=== PATIENT | female | born 1970 | race African-American/Black ===

== ENCOUNTER 2017-08-23 13:41 | Observation (INO) | payer BC, OTHER ==
[~2017-08-23] VITALS: Ht 160 cm; Wt 176.0 kg
[2017-08-23] MEDS ORDERED: ONDANSETRON HCL INJ 2 MG/ML VIAL IV STA (14:08)
[2017-08-23] MEDS ORDERED: MORPHINE SULFATE 2 MG/ML SYR IV STA (14:08)
[2017-08-23 14:10] LABS: BASOPHILS # (AUTO) 0.1 (0.0-0.1); BASOPHILS % 0.6 % (0.0-1.0); EOSINOPHILS # (AUTO) 0.1 (0.0-0.4); EOSINOPHILS % 0.9 % (0.0-6.0); HEMATOCRIT 35.8 % (34.2-44.1); LYMPHOCYTES # (AUTO) 4.6 (1.0-3.2); MEAN CORPUSCULAR HEMOGLOBIN 23.7 pg (28-32); MEAN CORPUSCULAR HGB CONC 30.7 g/dL (31-35); MEAN CORPUSCULAR VOLUME 77.2 fL (81-99); MONOCYTES # (AUTO) 0.6 (0.2-0.8); MONOCYTES % 5.3 % (4.4-11.3); NEUTROPHILS # (AUTO) 5.4 (2.1-6.9); NEUTROPHILS % 49.9 % (38.7-80.0); PLATELET COUNT 547 x10e3/uL (140-360); RED BLOOD COUNT 4.64 x10e6/uL (3.6-5.1); RED CELL DISTRIBUTION WIDTH 16.7 % (11.7-14.4)
[2017-08-23] MEDS ORDERED: ASPIRIN 81 MG CHEW TAB PO ONE (14:15)
[2017-08-23] MEDS ORDERED: SODIUM CHLORIDE 0.9% 1000ML 1,000 ML IV SCH (14:15)
[2017-08-23] MEDS ORDERED: NITROGLYCERIN 0.4 MG SUBL SL ONE (14:15)
[2017-08-23 14:22] LABS: INR 1.07; PARTIAL THROMBOPLASTIN TIME 20.2 seconds (23.8-35.5); PROTHROMBIN TIME 13.1 seconds (11.9-14.5)
[2017-08-23 14:30] LABS: ALANINE AMINOTRANSFERASE 15 IU/L (0-55); ALBUMIN 4.3 g/dL (3.5-5.0); ALKALINE PHOSPHATASE 66 IU/L (40-150); BLOOD UREA NITROGEN 13 mg/dL (7-26); BUN/CREATININE RATIO 11 (6-25); CALCIUM 10.1 mg/dL (8.4-10.2); CARBON DIOXIDE 24 mmol/L (22-29); CHLORIDE 100 mmol/L (98-107); CREATINE KINASE 311 IU/L (29-168); CREATININE, SERUM 1.18 mg/dL (0.57-1.11); EST GLOMERULAR FILTRATION RATE 60 ML/MIN (60-); GLUCOSE 100 mg/dL (74-118); MAGNESIUM 1.9 MG/DL (1.3-2.1); SODIUM 135 mmol/L (136-145)
[2017-08-23] MEDS ORDERED: NITROGLYCERIN 2% OINT 1 GM PKT TOP ONE (14:30)
[2017-08-23] MEDS ORDERED: ENOXAPARIN SODIUM INJ 100 MG/ML SYR SC STA (14:39)
[2017-08-23] MEDS ORDERED: SODIUM CHLORIDE FLUSH 10 ML SYR INJ PRN (15:00)
[2017-08-23] MEDS ORDERED: NITROGLYCERIN 0.4 MG SUBL SL PRN (15:00)
[2017-08-23] MEDS ORDERED: ONDANSETRON HCL INJ 2 MG/ML VIAL IV PRN (15:00)
--- NOTE | 2017-08-23 15:10 | Diagnostic Imaging Report ---
PROCEDURE: A single AP view of the chest. COMPARISON: None. INDICATIONS: CHEST PAIN FINDINGS: Lines/tubes: None. Lungs: Limited by body habitus. The lungs are well inflated and clear. There is no evidence of pneumonia or pulmonary edema. Pleura: There is no pleural effusion or pneumothorax. Heart and mediastinum: The heart and the mediastinum are unremarkable. Bones: No acute bony abnormality. IMPRESSION: 1. No acute cardiopulmonary disease. Dictated by: Monico Dorantes M.D. on 08/23/2017 at 15:14 Electronically approved by: Monico Dorantes M.D. on 08/23/2017 at 15:14
[2017-08-23 16:05] LABS: CHOL/HDL RATIO 5.1 (3.0-3.6)
[2017-08-23 16:08] VITALS: BP 147/94
[2017-08-23 16:25] LABS: THYROID STIMULATING HORMONE 2.439 uIU/mL (0.350-4.940)
[2017-08-23] MEDS ORDERED: ENOXAPARIN SOD INJ 40 MG/0.4 ML SYR SC SCH (17:00)
[2017-08-23] MEDS: FAMOTIDINE 20 MG/2 ML VIAL IV SCH (17:00)
[2017-08-23] MEDS: NITROGLYCERIN 2% OINT 1 GM PKT TOP SCH (17:13)
[2017-08-23 19:08] LABS: CREATINE KINASE 426 IU/L (29-168)
[2017-08-23 19:30] VITALS: BP 135/85
[2017-08-23 20:39] VITALS: BP 185/96
[2017-08-23 20:40] VITALS: BP 135/85
[2017-08-23] MEDS: METOPROLOL TARTRATE 25 MG TAB PO SCH (21:43)
[2017-08-23] MEDS ORDERED: ACETAMINOPHEN 325 MG TAB PO PRN (21:45)
[2017-08-23 23:28] VITALS: BP 135/85
[2017-08-23 23:55] VITALS: BP 135/85
[2017-08-24 00:42] VITALS: BP 135/85
[2017-08-24 00:43] VITALS: BP 127/72
[2017-08-24 04:14] VITALS: BP 108/53
[2017-08-24] MEDS: NITROGLYCERIN 2% OINT 1 GM PKT TOP SCH ×2 (05:30)
[2017-08-24 06:41] LABS: BASOPHILS # (AUTO) 0.1 (0.0-0.1); BASOPHILS % 0.8 % (0.0-1.0); EOSINOPHILS # (AUTO) 0.1 (0.0-0.4); EOSINOPHILS % 1.8 % (0.0-6.0); HEMATOCRIT 35.9 % (34.2-44.1); HEMOGLOBIN 10.8 g/dL (12.0-16.0); LYMPHOCYTES % 55.3 % (18.0-39.1); MEAN CORPUSCULAR HEMOGLOBIN 23.8 pg (28-32); MEAN CORPUSCULAR HGB CONC 30.1 g/dL (31-35); MEAN CORPUSCULAR VOLUME 79.1 fL (81-99); MONOCYTES # (AUTO) 0.5 (0.2-0.8); MONOCYTES % 6.5 % (4.4-11.3); NEUTROPHILS # (AUTO) 2.5 (2.1-6.9); NEUTROPHILS % 35.2 % (38.7-80.0); PLATELET COUNT 459 x10e3/uL (140-360); RED BLOOD COUNT 4.54 x10e6/uL (3.6-5.1); RED CELL DISTRIBUTION WIDTH 16.6 % (11.7-14.4)
[2017-08-24 07:01] LABS: ALANINE AMINOTRANSFERASE 15 IU/L (0-55); ALBUMIN 3.9 g/dL (3.5-5.0); ALKALINE PHOSPHATASE 64 IU/L (40-150); ANION GAP 13.3 mmol/L (8-16); BLOOD UREA NITROGEN 11 mg/dL (7-26); BUN/CREATININE RATIO 12 (6-25); CALCIUM 9.7 mg/dL (8.4-10.2); CARBON DIOXIDE 27 mmol/L (22-29); CHLORIDE 99 mmol/L (98-107); CHOL/HDL RATIO 5.3 (3.0-3.6); CHOLESTEROL 203 MD/DL (0-199); CREATININE, SERUM 0.93 mg/dL (0.57-1.11); EST GLOMERULAR FILTRATION RATE > 60 ML/MIN (60-); GLUCOSE 97 mg/dL (74-118); HDL CHOLESTEROL 38 MG/DL (40-60); LDL CHOLESTEROL 141 MG/DL (60-130); POTASSIUM 4.3 mmol/L (3.5-5.1); SODIUM 135 mmol/L (136-145); TRIGLYCERIDES 118 MG/DL (0-149)
[2017-08-24 08:06] VITALS: BP 130/75
[2017-08-24 08:12] LABS: CREATINE KINASE 605 IU/L (29-168)
[2017-08-24] MEDS: FAMOTIDINE 20 MG/2 ML VIAL IV SCH (08:46)
[2017-08-24] MEDS: METOPROLOL TARTRATE 25 MG TAB PO SCH (08:46)
[2017-08-24] MEDS ORDERED: ASPIRIN 325 MG TAB PO SCH (09:00)
[2017-08-24] MEDS ORDERED: ASPIRIN 325 MG TAB EC PO SCH (09:00)
[2017-08-24] MEDS ORDERED: ACETAMINOPHEN325 M1 PO (11:32)
[2017-08-24] MEDS ORDERED: LOPRESSOR25 MG PO (11:32)
[2017-08-24] MEDS ORDERED: ASPIRIN325 MG PO (11:32)
[2017-08-24] MEDS ORDERED: PEPCID20 MG PO (11:32)
[2017-08-24] MEDS ORDERED: PRAVASTATIN SOD20 MG PO (11:34)
[2017-08-24 12:05] VITALS: BP 113/55
--- NOTE | 2017-08-26 16:01 | History and Physical ---
PRIMARY CARE PHYSICIAN: Dr. Ford. CHIEF COMPLAINT: Chest pain. HISTORY OF PRESENT ILLNESS: A 47-year-old woman with a history of diabetes mellitus and hypertension, now developing chest discomfort described as tightness in the left side of the chest, described as squeezing as well. Took an aspirin 325 mg with no relief. Given nitroglycerin in the emergency room with improvement. She had diffuse muscle spasms as well over her entire body. She admits to starting a workup regimen by using a stationary bike for the past week and was recently exercising yesterday. Denies any other symptoms. Denies any shortness of breath, dizziness or blurred vision. She had a stress test previously at [facility] which was negative. PAST MEDICAL HISTORY: Hypertension, diabetes mellitus, morbid obesity. PAST SURGICAL HISTORY: Gastric sleeve, x2. ALLERGIES: PER THE ELECTRONIC MEDICAL RECORDS. FAMILY HISTORY/SOCIAL HISTORY: Patient is . She has 3 children. No alcohol, illicit drugs or cigarettes. 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 MEDICATIONS: Per the electronic medical records. Medications reviewed. REVIEW OF SYSTEMS: Denies any dizziness, fever, chills, sweats, nausea, vomiting, diarrhea. VITAL SIGNS: Have been reviewed. PHYSICAL EXAMINATION GENERAL APPEARANCE: A tired-appearing woman resting in bed. HEENT: Anicteric. Pupils responsive to light. No oral lesions. CARDIOVASCULAR: Normal S1/S2. LUNGS: Moderate breath sounds. ABDOMEN: Soft, nontender, nondistended. EXTREMITIES: No edema or calf tenderness. NEUROLOGICALLY: Alert and oriented x3. Moving all extremities. SKIN: Dry. PSYCHIATRIC: Normal mood. LABS: Reviewed. ASSESSMENT: A 47-year-old woman. 1. Chest pain. 2. Acute kidney injury. 3. Supermorbid obesity. 4. Hypertension. 5. History of diabetes mellitus. PLAN 1. Trend cardiac enzymes. 2. Obtain lipid panel and hemoglobin A1c. 3. Obtain TSH. 4. Use Lovenox and Pepcid for prophylaxis. 5. Cardiology consultation in a patient with a history of diabetes, morbid obesity and chest discomfort. 6. Follow up echocardiogram. 7. Chest x-ray and EKG have been reviewed. Job#: [id number] EV
== END 2017-08-24 12:55 | disposition home or self-care (01) ==
LOC: ER 13:41 → ERHOLD 15:06 → IMCU 16:01
PROVIDERS: ADMIT Internal Medicine; ATTEND Internal Medicine
DX: R07.89 Other chest pain (principal); N17.9 Acute kidney failure, unspecified; I10 Essential (primary) hypertension; E11.9 Type 2 diabetes mellitus without complications; Z68.44 Body mass index [BMI] 60.0-69.9, adult; E66.01 Morbid (severe) obesity due to excess calories; I07.1 Rheumatic tricuspid insufficiency; Z98.84 Bariatric surgery status; Z79.82 Long term (current) use of aspirin
CPT/HCPCS: 36415 ×2; 71045; 80053 ×2; 80061 ×2; 82550 ×2; 82553 ×2; 83036; 83735; 83880; 84443; 84484 ×2; 84702; 85025 ×2; 85379; 85610; 85730; 93005; 93306; 99284; G0378 ×2; J1650; J2270; J2405

== ENCOUNTER 2018-03-11 11:28 | Emergency (ER) | payer BC, OTHER ==
[~2018-03-11] VITALS: Ht 162.6 cm; Wt 163.3 kg
[~2018-03-11 11:28] MED LIST: ACETAMINOPHEN325 M1 PO; ASPIRIN325 MG PO; LOPRESSOR25 MG PO; PEPCID20 MG PO; PRAVASTATIN SOD20 MG PO
--- OUTSIDE RECORDS SUMMARY | 2018-03-11 11:31 | XMS REPORT ---
Author Author [facility] Address Unknown Phone Unavailable Care Team Providers Care Elevator Adjuster Name Role Phone ROSIE CONLEY Unavailable Unavailable Problems This patient has no known problems. Allergies, Adverse Reactions, Alerts This patient has no known allergies or adverse reactions. Medications This patient has no known medications. Results Test Description Test Time Test Comments Text Results Atomic Results Result Comments CHEST SINGLE (PORTABLE) 2017-08-23 15:14:00 [place] [id number] Patient Name: Rubia RUSS MR #: [id number] : 1970 Age/Sex: 47/F Req #: [id number] Adm Physician: ROSIE CONLEY MD Ordered by: RAMÓN GOOD MD Report #: [id number] Location: [facility] Room/Bed: [place] [address] Procedure: [id number] DX/CHEST SINGLE (PORTABLE) Exam Date: Exam Time: REPORT STATUS: Signed PROCEDURE: A single AP view of the chest. COMPARISON: None. INDICATIONS: CHEST PAIN FINDINGS: Lines/tubes: None. Lungs: Limited by body habitus. The lungs are well inflated and clear. There is no evidence of pneumonia or pulmonary edema. Pleura: There is no pleural effusion or pneumothorax. Heart and mediastinum: The heart and the mediastinum are unremarkable. Bones: No acute bony abnormality. IMPRESSION: 1. No acute cardiopulmonary disease. Dictated by: Monico Angelo M.D. on 08/23/2017 at 15:14 Electronically approved by: Monico Angelo M.D. on 08/23/2017 at 15:14 Dictated By: MONICO ANGELO MD 1514 Transcribed By: NOVA on 08/23/17 [id number] COPY TO: RAMÓN GOOD MD
[2018-03-11 12:26] VITALS: BP 146/98
[2018-03-11] MEDS ORDERED: ONDANSETRON HCL 4 MG ORAL DISINTEGRATING TAB PO ONE (12:30)
== END 2018-03-11 12:35 | disposition home or self-care (01) ==
LOC: FSED 11:28
DX: R53.1 Weakness (principal); K52.9 Noninfective gastroenteritis and colitis, unspecified; K05.00 Acute gingivitis, plaque induced; M79.7 Fibromyalgia
CPT/HCPCS: 99282

== ENCOUNTER 2018-03-13 17:00 | Emergency (ER) | payer BC ==
[~2018-03-13] VITALS: Ht 162.6 cm; Wt 159.7 kg
[2018-03-13] MEDS ORDERED: SODIUM CHLORIDE 0.9% 1000ML 1,000 ML IV STA (17:16)
[2018-03-13 17:26] LABS: BASOPHILS # (AUTO) 0.1 (0.0-0.1); BASOPHILS % 0.6 % (0.0-1.0); EOSINOPHILS # (AUTO) 0.2 (0.0-0.4); EOSINOPHILS % 1.9 % (0.0-6.0); HEMATOCRIT 33.1 % (34.2-44.1); HEMOGLOBIN 9.5 g/dL (12.0-16.0); LYMPHOCYTES # (AUTO) 4.1 (1.0-3.2); LYMPHOCYTES % 51.2 % (18.0-39.1); MEAN CORPUSCULAR HEMOGLOBIN 22.2 pg (28-32); MEAN CORPUSCULAR HGB CONC 28.7 g/dL (31-35); MEAN CORPUSCULAR VOLUME 77.3 fL (81-99); MONOCYTES # (AUTO) 0.6 (0.2-0.8); MONOCYTES % 7.2 % (4.4-11.3); NEUTROPHILS # (AUTO) 3.1 (2.1-6.9); PLATELET COUNT 437 x10e3/uL (140-360); RED BLOOD COUNT 4.28 x10e6/uL (3.6-5.1); RED CELL DISTRIBUTION WIDTH 16.7 % (11.7-14.4)
[2018-03-13] MEDS ORDERED: PROMETHAZINE HCL (IM) 25 MG/ML VIAL ONE (17:30)
[2018-03-13] MEDS ORDERED: DIPHENHYDRAMINE HCL INJ 50 MG/ML VIAL IV ONE (17:30)
[2018-03-13] MEDS ORDERED: PROMETHAZINE HCL (IM) 25 MG/ML VIAL IM ONE (18:00)
[2018-03-13] MEDS ORDERED: KETOROLAC TROMETHAMINE 30 MG/ML VIAL IV ONE (18:00)
[2018-03-13] MEDS ORDERED: METOCLOPRAMIDE HCL 10 MG/2ML VIAL IV ONE (18:00)
--- NOTE | 2018-03-13 18:03 | NUR ---
PT STATES HEADACHE TO FRONTAL LOBE RADIATING TO BACK WITH NAUSEA X 4 DAYS POST VISIT TO DENTIST OFFICE PT C/O PHOTOSENSITIVITY DENIES VOMITING, DENIES TRAUMA, PT STATES HISTORY OF MIGRAINES BUT HAS NOT HAD ONE IN YEARS DENIES NECK/BACK PAIN
[2018-03-13 18:05] LABS: ALANINE AMINOTRANSFERASE 16 IU/L (0-55); ALBUMIN 3.7 g/dL (3.5-5.0); ALKALINE PHOSPHATASE 57 IU/L (40-150); ANION GAP 13.7 mmol/L (8-16); BLOOD UREA NITROGEN 12 mg/dL (7-26); BUN/CREATININE RATIO 14 (6-25); CALCIUM 8.6 mg/dL (8.4-10.2); CARBON DIOXIDE 25 mmol/L (22-29); CHLORIDE 104 mmol/L (98-107); CREATININE, SERUM 0.85 mg/dL (0.57-1.11); EST GLOMERULAR FILTRATION RATE > 60 ML/MIN (60-); GLUCOSE 93 mg/dL (74-118); POTASSIUM 3.7 mmol/L (3.5-5.1); SODIUM 139 mmol/L (136-145)
[2018-03-13] MEDS ORDERED: MECLIZINE HCL 12.5 MG TAB PO ONE (18:30)
[2018-03-13 18:41] LABS: EOSINOPHILS % (MANUAL) 7 % (0-7); LYMPHOCYTES % (MANUAL) 51 % (19-48); MONOCYTES % (MANUAL) 7 % (3.4-9.0); NEUTROPHILS % (MANUAL) 32 % (40-74)
[2018-03-13 18:42] LABS: ANISOCYTOSIS S; PLATELET ESTIMATE SLIGHTLY INCREASED; PLATELET MORPHOLOGY COMMENT NORMAL; POIKILOCYTOSIS S; RBC MORPHOLOGY COMMENT NORMAL
--- NOTE | 2018-03-13 19:09 | NUR ---
Report to RADHA Dunbar.
--- NOTE | 2018-03-13 19:37 | Diagnostic Imaging Report ---
Exam: Head CT without contrast History: Headache, dizziness Comparison studies: None Technique: Axial images were obtained from the skull base to the vertex. Coronal and sagittal images reconstructed from the axial data. Dose modulation, iterative reconstruction, and/or weight based adjustment of the mA/kV was utilized to reduce the radiation dose to as low as reasonably achievable. Radiation dose: Total DLP: 921 mGy*cm. Estimated effective dose: DLP x 0.015 Intravenous contrast: None Findings: Scalp: No abnormalities. Bones: No fractures, blastic or lytic lesions. Brain sulci: Appropriate for age. Ventricles: Normal in size and configuration. No hydrocephalus. Extra-axial spaces: No masses, no fluid collection. Parenchyma: No abnormal densities. No masses, acute hemorrhage, acute or chronic vascular insults. Sellar/suprasellar region: No abnormalities. Craniocervical junction: Patent foramen magnum. No Chiari one malformation. Included paranasal sinuses: Clear. Weaver cavities and included mastoid air cells: Clear. IMPRESSION: No abnormalities. Signed by: Dr. Richie Solis M.D. on 03/13/2018 7:34 PM
--- NOTE | 2018-03-13 20:01 | NUR ---
PT RESTING COMFORTABLY IN BED AT THIS TIME, DENIES PAIN OR NAUSEA. UPDATED WITH PLAN OF CARE, VERBALIZED UNDERSTANDING. CALL LIGHT WITHIN REACH, ENCOURAGED TO CALL FOR ASSISTANCE. WILL CONTINUE TO MONITOR.
[2018-03-13 22:17] LABS: BILIRUBIN,URINE NEGATIVE (NEGATIVE); CLARITY,URINE CLOUDY (CLEAR); COLOR,URINE YELLOW (YELLOW); KETONES,URINE NEGATIVE (NEGATIVE); LEUKOCYTE ESTERASE ,URINE NEGATIVE (NEGATIVE); NITRITE,URINE NEGATIVE (NEGATIVE); PREGNANCY TEST, URINE NEGATIVE (NEGATIVE); PROTEIN,URINE DIPSTICK TRACE (NEGATIVE); URINE UROBILINOGEN 0.2 mg/dL (0.2 - 1)
[2018-03-13 22:26] LABS: BACTERIA,URINE MANY /HPF; EPITHELIAL CELLS,URINE MANY /LPF
[2018-03-13 22:57] VITALS: BP 143/86
== END 2018-03-13 23:00 | disposition home or self-care (01) ==
LOC: ER 17:00
DX: G44.211 Episodic tension-type headache, intractable (principal); R11.2 Nausea with vomiting, unspecified; H81.399 Other peripheral vertigo, unspecified ear
CPT/HCPCS: 36415; 70450; 80053; 81001; 81025; 85025; 87086; 93005; 96374; 96375; 99284; J1200; J1885; J2550; J2765; J7030

== ENCOUNTER → 2018-08-15 | Outpatient (CLI) | payer BC ==
--- NOTE | 2018-08-15 14:03 | Diagnostic Imaging Report ---
EXAM: Transabdominal and Transvaginal Pelvic Ultrasound INDICATION: Fibroids. ^[id number] ^1134 ^HX FIBROIDS/HEAVY CYCLES COMPARISON: None TECHNIQUE: Grayscale transverse and sagittal transabdominal and transvaginal images were obtained of the pelvis. Transvaginal imaging was medically necessary to better evaluate the endometrium and the adnexa. CLINICAL HISTORY: 48 year old A0; last menstrual period: 07/17/2018. FINDINGS: Uterus Orientation: Normal Size: 10.9 x 5.7 x 7.7 cm, Normal Mass: None Cervix: 1.1 cm anechoic lesion likely due to a nabothian cyst. Endometrium: Thickness: 0.2 cm, Normal. Appearance: Homogeneous echotexture without focal thickening. Right ovary: Size: 3.5 x 1.2 x 2.6 cm Mass/Cyst: None Left ovary: Size: 2.9 x 2.2 x 2.6 cm Mass/Cyst: 2.9 x 2.2 x 1.1 cm simple appearing left ovarian cyst Adnexa: Normal Cul-de-sac: No free fluid IMPRESSION: 2.9 x 2.2 x 1.1 cm simple appearing left ovarian cyst. 1.1 cm anechoic cervical lesion likely due to a nabothian cyst. Signed by: Dr. Burak Elder M.D. on 08/15/2018 1:59 PM
== END ==
LOC: US 10:47
PROVIDERS: ATTEND Obstetrics & Gynecology
DX: N92.0 Excessive and frequent menstruation with regular cycle (principal); D25.9 Leiomyoma of uterus, unspecified
CPT/HCPCS: 76830; 76856; 77067

== ENCOUNTER 2019-09-17 06:06 | Emergency (ER) | payer BC ==
[~2019-09-17] VITALS: Ht 162.6 cm; Wt 159.7 kg
[2019-09-17] MEDS ORDERED: MORPHINE SULFATE 2 MG/ML SYR 1ML IV STA ×2 (06:11→07:11)
[2019-09-17] MEDS ORDERED: KETOROLAC TROMETHAMINE 30 MG/ML VIAL IV STA (06:11)
[2019-09-17] MEDS ORDERED: ONDANSETRON HCL INJ 2MG/ML 2ML 2 MG/ML VIAL IV STA (06:11)
[2019-09-17] MEDS ORDERED: SODIUM CHLORIDE 0.9% 1000ML 1,000 ML IV SCH (06:15)
[2019-09-17] MEDS ORDERED: MORPHINE SULFATE INJ 4 MG/ML INJ 1ML ONE ×2 (06:53→07:28)
--- NOTE | 2019-09-17 07:05 | Emergency Department Note ---
History of Present Illnes History of Present Illness Chief Complaint: Abdominal Complaints History of Present Illness This is a 49 year old female . Arrival Mode: Car Order Puller Required: No Onset (how long ago): hour(s) (1-2) Location: LLQ Quality: Pain Radiation: Reports back, Reports distal Severity: moderate Onset quality: sudden Duration (how long): hour(s) Timing of current episode: constant Progression: waxing and waning Chronicity: new Context: Denies recent illness, Denies recent surgery, Denies recent immobi lization, Denies recent travel, Denies trauma/injury, Denies new medications, Denies hx of DVT/PE, Denies non-compliance w/ medications, Denies other Relieving factors: none Exacerbating factors: movement Associated symptoms: Denies denies other symptoms, Denies confusion, Denies chest pain, Denies cough, Denies diaphoresis, Denies fever/chills, Denies headaches, Denies loss of appetite, Denies malaise, Denies nausea/vomiting, Denies rash, Denies seizure, Denies shortness of breath, Denies syncope, Denies weakness, Denies other Treatments prior to arrival: none Risk factors: Pt has hx of gastic sleeve, C sections, ovarina cyst no hx of stones Past Medical/Family History Physician Review I have reviewed the patient's past medical and family history. Any updates have been documented here. Past Medical History Recent Fever: No Clinical Suspicion of Infectio: No New/Unexplained Change in Ment: No Past Medical History: Hypertension Other Medical History: FIBROMYALGIA PARAESTHESIA ANEMIA Past Surgical History: Tubal Ligation, , Bariatric Surgery Other Surgery: Gastric Sleeve Tubal Ligation Social History Smoking Cessation: Never Smoker Alcohol Use: None Any Illegal Drug Use: No Other Last Tetanus: unk Review of Systems Review of Systems Constitutional: Denies no symptoms, Denies as per HPI, Denies chills, Denies diaphoresis, Denies fever, Denies malaise, Denies weakness, Denies other Gastrointestinal: Reports abdominal pain; Denies diarrhea, Denies nausea Genitourinary: Denies dysuria, Denies frequency, Denies hematuria Review of other systems: All other systems negative Physical Exam Related Data Allergies: Coded Allergies: No Known Allergies (Unverified , 08/23/17) Vital signs reviewed: Yes Physical Exam CONSTITUTIONAL Constitutional: Present well-developed, Present morbidly obese HENT HENT: Present normocephalic EYES Eyes: Reports conjunctivae normal NECK Neck: Present supple PULMONARY Pulmonary: Present breath sounds normal CARDIOVASCULAR Cardiovascular: Present regular rhythm GASTROINTESTINAL Abdominal: Present soft, Present tender GENITOURINARY SKIN Skin: Present warm MUSCULOSKELETAL Musculoskeletal: Absent edema NEUROLOGICAL Neurological: Present alert PSYCHOLOGICAL Psychological: Present mood/affect normal Results Laboratory Laboratory UPT neg UA b;ppd raced, Nitrite pos CMP Normal CBC Normal Lab results reviewed: Yes Imaging Imaging results reviewed: Yes Impressions Procedure: [id number] CT/CT ABDOMEN/PELVIS WO Exam Date: 09/17/19 Exam Time: 825 REPORT STATUS: Signed EXAM: CT Abdomen and Pelvis WITHOUT contrast INDICATION: LLQ abd pain COMPARISON: Pelvic ultrasound dated 08/15/2018 TECHNIQUE: Abdomen and pelvis were scanned utilizing a multidetector helical scanner from the lung base to the pubic symphysis without administration of IV contrast. Absence of intravenous contrast decreases sensitivity for detection of focal lesions and vascular pathology. Coronal and sagittal reformations were obtained. Routine protocol was performed. IV CONTRAST: None ORAL CONTRAST: Water COMPLICATIONS: None RADIATION DOSE: Total DLP: 1340.54 mGy-cm Estimated effective dose: (DLP x 0.015 x size factor) mSv CTDIvol has been reviewed. It is below the limits set by the Radiation Protocol Committee (RPC). FINDINGS: LINES and TUBES: None. LOWER THORAX: Unremarkable HEPATOBILIARY: No focal hepatic lesions. No biliary ductal dilation. GALLBLADDER: No radio-opaque stones or sludge. No gallbladder wall thickening. SPLEEN: No splenomegaly.. PANCREAS: The unenhanced pancreas shows no focal masses. There is no ductal dilatation. ADRENALS: The adrenal glands are unremarkable. KIDNEYS/URETERS: No hydronephrosis. No cystic or solid mass lesions. No stones. GI TRACT: Status post gastric surgery. No abnormal distention, wall thickening, or evidence of bowel obstruction. PELVIC ORGANS/BLADDER: The bladder is unremarkable. LYMPH NODES: Slightly prominent mesenteric lymph nodes measuring up to 0.7 cm, nonspecific. VESSELS: Vessels are incompletely evaluated due to lack of IV contrast. However no definite aneurysm seen. PERITONEUM / RETROPERITONEUM: No free air or fluid. BONES: Unremarkable. SOFT TISSUES: Unremarkable. IMPRESSION: No nephroureterolithiasis. No cystolithiasis. Slightly prominent mesenteric lymph nodes are nonspecific could be reactive. Signed by: Kristofer Hunt MD on 09/17/2019 8:48 AM Assessment & Plan Medical Decision Making MDM stones, diverticulitis, ovarian cyst,ovarian torsion Reassessment Reassessment Pt still having pain CT neg, pain is low and goes to ant leg which makes me thinks this may be radicular in nature L1-L2 Assessment & Plan Final Impression: (1) Abdominal pain (2) UTI (urinary tract infection) (3) Hypertension (4) Radicular low back pain Depart Disposition: HOME, SELF-long term Meds Active Scripts Sulfamethoxazole/Trimethoprim (BACTRIM DS TABLET) 1 Each Tablet, 1 EACH PO BID for 7 Days, #14 Prov:WEI KRISHNAN MD 09/17/19 Naproxen (NAPROSYN) 500 Mg Tablet, 500 MG PO BID for pain for 7 Days, #14 TAB Prov:WEI KRISHNAN MD 09/17/19 Tramadol Hcl (ULTRAM) 50 Mg Tablet, 50 MG PO TID PRN for ABDOMINAL PAIN for 4 Days, #12 TAB Prov:WEI KRISHNAN MD 09/17/19 Pravastatin Sodium (PRAVASTATIN SODIUM) 20 Mg Tablet, 20 MG PO HS for 30 Days Prov:ROSIE CONLEY MD 08/24/17 Famotidine (PEPCID) 20 Mg Tablet, 20 MG PO BID, #60 TAB Prov:ROSIE CONLEY MD 08/24/17 Metoprolol Tartrate (LOPRESSOR) 25 Mg Tab, 12.5 MG PO Q12HR for 30 Days, TAB Prov:ROSIE CONLEY MD 08/24/17 Aspirin (ASPIRIN) 325 Mg Tablet, 325 MG PO DAILY for 30 Days Prov:ROSIE CONLEY MD 08/24/17 Acetaminophen (ACETAMINOPHEN) 325 Mg Tablet, 650 MG PO Q6H PRN for PAIN AND TEMPERATURE for 30 Days Prov:ROSIE CONLEY MD 08/24/17 Medications in the ED Sodium Chloride 1,000 ml @ 0 mls/hr Q0M IV ; Start 09/17/19 at 06:15; Stop 10/17/19 at 06:14; Status UNV Ketorolac Tromethamine 15 mg ONCE STAT IV ; Start 09/17/19 at 06:11; Stop 7/26/20 at 06:12; Status UNV Ondansetron HCl 4 mg NOW STAT IV ; Start 09/17/19 at 06:11; Stop 09/17/19 at 06:12; Status UNV Morphine Sulfate 4 mg NOW STAT IV ; Start 09/17/19 at 06:11; Stop 09/17/19 at 06:12; Status UNV WEI KRISHNAN MD Sep 17, 2019 06:48
--- NOTE | 2019-09-17 08:52 | Diagnostic Imaging Report ---
EXAM: CT Abdomen and Pelvis WITHOUT contrast INDICATION: LLQ abd pain COMPARISON: Pelvic ultrasound dated 08/15/2018 TECHNIQUE: Abdomen and pelvis were scanned utilizing a multidetector helical scanner from the lung base to the pubic symphysis without administration of IV contrast. Absence of intravenous contrast decreases sensitivity for detection of focal lesions and vascular pathology. Coronal and sagittal reformations were obtained. Routine protocol was performed. IV CONTRAST: None ORAL CONTRAST: Water COMPLICATIONS: None RADIATION DOSE: Total DLP: 1340.54 mGy-cm Estimated effective dose: (DLP x 0.015 x size factor) mSv CTDIvol has been reviewed. It is below the limits set by the Radiation Protocol Committee (RPC). FINDINGS: LINES and TUBES: None. LOWER THORAX: Unremarkable HEPATOBILIARY: No focal hepatic lesions. No biliary ductal dilation. GALLBLADDER: No radio-opaque stones or sludge. No gallbladder wall thickening. SPLEEN: No splenomegaly.. PANCREAS: The unenhanced pancreas shows no focal masses. There is no ductal dilatation. ADRENALS: The adrenal glands are unremarkable. KIDNEYS/URETERS: No hydronephrosis. No cystic or solid mass lesions. No stones. GI TRACT: Status post gastric surgery. No abnormal distention, wall thickening, or evidence of bowel obstruction. PELVIC ORGANS/BLADDER: The bladder is unremarkable. LYMPH NODES: Slightly prominent mesenteric lymph nodes measuring up to 0.7 cm, nonspecific. VESSELS: Vessels are incompletely evaluated due to lack of IV contrast. However no definite aneurysm seen. PERITONEUM / RETROPERITONEUM: No free air or fluid. BONES: Unremarkable. SOFT TISSUES: Unremarkable. IMPRESSION: No nephroureterolithiasis. No cystolithiasis. Slightly prominent mesenteric lymph nodes are nonspecific could be reactive. Signed by: Kristofer Hunt MD on 09/17/2019 8:48 AM
[2019-09-17] MEDS ORDERED: NAPROSYN500 MG PO (09:11)
[2019-09-17] MEDS ORDERED: BACTRIM DS TAB1 EACH PO (09:11)
[2019-09-17] MEDS ORDERED: ULTRAM50 MG PO (09:11)
[2019-09-17 09:56] VITALS: BP 144/88
[2019-09-17] MEDS ORDERED: HYDROCODONE/APAP 5MG-325MG TAB ONE (09:56)
[2019-09-17] MEDS ORDERED: HYDROCODONE/APAP 5MG-325MG TAB PO ONE (10:00)
== END 2019-09-17 09:53 | disposition home or self-care (01) ==
LOC: FSED 06:15
DX: R10.32 Left lower quadrant pain (principal); N39.0 Urinary tract infection, site not specified; M54.5 Low back pain; I10 Essential (primary) hypertension; M79.7 Fibromyalgia; Z98.84 Bariatric surgery status
CPT/HCPCS: 74176; 80053; 81003; 81025; 85025; 99284; J1885; J2270; J2405; J7030

== ENCOUNTER 2020-02-01 00:42 | Emergency (ER) | payer BC, OTHER ==
[~2020-02-01] VITALS: Ht 162.6 cm; Wt 159.7 kg
[~2020-02-01 00:42] MED LIST changes: +BACTRIM DS TAB1 EACH PO; +NAPROSYN500 MG PO; +ULTRAM50 MG PO
[2020-02-01] MEDS ORDERED: SODIUM CHLORIDE 0.9% 1000ML 1,000 ML IV STA (00:48)
[2020-02-01 01:08] LABS: BASOPHILS # (AUTO) 0.1 (0.0-0.1); BASOPHILS % 0.7 % (0.0-1.0); EOSINOPHILS # (AUTO) 0.1 (0.0-0.4); EOSINOPHILS % 1.7 % (0.0-6.0); HEMATOCRIT 36.1 % (34.2-44.1); HEMOGLOBIN 10.7 g/dL (12.0-16.0); LYMPHOCYTES # (AUTO) 3.9 (1.0-3.2); LYMPHOCYTES % 47.4 % (18.0-39.1); MEAN CORPUSCULAR HEMOGLOBIN 23.6 pg (28-32); MEAN CORPUSCULAR HGB CONC 29.6 g/dL (31-35); MEAN CORPUSCULAR VOLUME 79.7 fL (81-99); MONOCYTES # (AUTO) 0.6 (0.2-0.8); MONOCYTES % 6.9 % (4.4-11.3); NEUTROPHILS # (AUTO) 3.5 (2.1-6.9); NEUTROPHILS % 43.1 % (38.7-80.0); PLATELET COUNT 476 x10e3/uL (140-360); RED BLOOD COUNT 4.53 x10e6/uL (3.6-5.1); RED CELL DISTRIBUTION WIDTH 15.6 % (11.7-14.4)
[2020-02-01 01:11] LABS: CLARITY,URINE SL CLOUDY (CLEAR); COLOR,URINE YELLOW (YELLOW); KETONES,URINE NEGATIVE (NEGATIVE); LEUKOCYTE ESTERASE ,URINE NEGATIVE (NEGATIVE); NITRITE,URINE NEGATIVE (NEGATIVE); PROTEIN,URINE DIPSTICK NEGATIVE (NEGATIVE); URINE UROBILINOGEN 0.2 mg/dL (0.2 - 1)
[2020-02-01 01:15] LABS: BACTERIA,URINE FEW /HPF; EPITHELIAL CELLS,URINE MANY /LPF; RBC,URINE 0-5 /HPF (0-5); WBC,URINE (MAN) 0-5 /HPF (0-5)
[2020-02-01 01:25] LABS: ALANINE AMINOTRANSFERASE 9 IU/L (0-55); ALBUMIN/GLOBULIN RATIO 1.1 (0.8-2.0); ALKALINE PHOSPHATASE 65 IU/L (40-150); ANION GAP 11.4 mmol/L (8-16); BLOOD UREA NITROGEN 15 mg/dL (7-26); BUN/CREATININE RATIO 18 (6-25); CALCIUM 9.5 mg/dL (8.4-10.2); CARBON DIOXIDE 27 mmol/L (22-29); CHLORIDE 105 mmol/L (98-107); CREATININE, SERUM 0.82 mg/dL (0.57-1.11); EST GLOMERULAR FILTRATION RATE > 60 ML/MIN (60-); GLUCOSE 101 mg/dL (74-118); POTASSIUM 4.4 mmol/L (3.5-5.1); SODIUM 139 mmol/L (136-145)
[2020-02-01] MEDS ORDERED: ONDANSETRON HCL INJ 2MG/ML 2ML 2 MG/ML VIAL IV STA (02:20)
[2020-02-01] MEDS ORDERED: ONDANSETRON HCL INJ 2MG/ML 2ML 2 MG/ML VIAL ONE (02:32)
[2020-02-01] MEDS ORDERED: IOPAMIDOL 370 MG/ML 200 ML INFUS..BTL INJ ONE (07:01)
[2020-02-01] MEDS ORDERED: SODIUM CHLORIDE 0.9% 50ML 50 ML ONE (07:02)
== END 2020-02-01 04:47 | disposition home or self-care (01) ==
LOC: ER 01:05
DX: R10.84 Generalized abdominal pain (principal); K57.32 Diverticulitis of large intestine without perforation or abscess without bleeding; R11.2 Nausea with vomiting, unspecified; R05 Cough; R19.7 Diarrhea, unspecified; D64.9 Anemia, unspecified; M79.7 Fibromyalgia; Z20.828 Contact with and (suspected) exposure to other viral communicable diseases
CPT/HCPCS: 36415; 71045; 74177; 80053; 81001; 83690; 85025; 99284; J2405; J7030; Q9967; U0002

== ENCOUNTER → 2020-02-19 | Outpatient (CLI) | payer OTHER ==
[~2020-02-19] MED LIST changes: +COVID-19 VACC, MRNA(MODERNA)/PF 100 MCG/0.5 ML VIAL IM ONE
== END ==
LOC: VACCPMC 10:49
DX: Z23 Encounter for immunization (principal); Z20.828 Contact with and (suspected) exposure to other viral communicable diseases

== ENCOUNTER → 2020-03-28 | Outpatient (CLI) | payer OTHER | END | DRG 951 | LOC: VACCPMC 07:37 | DX: Z23 Encounter for immunization (principal); Z20.822 Contact with and (suspected) exposure to COVID-19 | CPT/HCPCS: 0012A; 91301 ==

== ENCOUNTER → 2020-06-30 | Outpatient (CLI) | payer OTHER ==
[~2020-06-30] MED LIST changes: -COVID-19 VACC, MRNA(MODERNA)/PF 100 MCG/0.5 ML VIAL IM ONE
[2020-06-30 07:47] LABS: BASOPHILS % 0.5 % (0.0-1.0); EOSINOPHILS # (AUTO) 0.2 (0.0-0.4); EOSINOPHILS % 2.2 % (0.0-6.0); HEMATOCRIT 35.4 % (34.2-44.1); HEMOGLOBIN 10.5 g/dL (12.0-16.0); LYMPHOCYTES # (AUTO) 3.7 (1.0-3.2); LYMPHOCYTES % 49.8 % (18.0-39.1); MEAN CORPUSCULAR HEMOGLOBIN 22.7 pg (28-32); MEAN CORPUSCULAR HGB CONC 29.7 g/dL (31-35); MEAN CORPUSCULAR VOLUME 76.6 fL (81-99); MONOCYTES # (AUTO) 0.4 (0.2-0.8); MONOCYTES % 5.4 % (4.4-11.3); NEUTROPHILS # (AUTO) 3.1 (2.1-6.9); NEUTROPHILS % 41.7 % (38.7-80.0); PLATELET COUNT 443 x10e3/uL (140-360); RED BLOOD COUNT 4.62 x10e6/uL (3.6-5.1); RED CELL DISTRIBUTION WIDTH 17.1 % (11.7-14.4)
[2020-06-30 08:10] LABS: ALANINE AMINOTRANSFERASE 9 IU/L (0-55); ALBUMIN 3.6 g/dL (3.5-5.0); ALKALINE PHOSPHATASE 65 IU/L (40-150); BLOOD UREA NITROGEN 11 mg/dL (7-26); BUN/CREATININE RATIO 14 (6-25); CALCIUM 8.6 mg/dL (8.4-10.2); CARBON DIOXIDE 26 mmol/L (22-29); CHLORIDE 105 mmol/L (98-107); CHOL/HDL RATIO 4.2 (3.0-3.6); CHOLESTEROL 188 MD/DL (0-199); CREATININE, SERUM 0.81 mg/dL (0.57-1.11); EST GLOMERULAR FILTRATION RATE > 60 ML/MIN (60-); GLUCOSE 107 mg/dL (74-118); HDL CHOLESTEROL 45 MG/DL (40-60); LDL CHOLESTEROL 118 MG/DL (60-130); SODIUM 140 mmol/L (136-145); TRIGLYCERIDES 125 MG/DL (0-149)
[2020-06-30 08:30] LABS: THYROID STIMULATING HORMONE 1.345 uIU/mL (0.350-4.940)
[2020-06-30 08:41] LABS: PLATELET ESTIMATE SLIGHTLY INCREASED; PLATELET MORPHOLOGY COMMENT FEW LARGE; RBC MORPHOLOGY COMMENT NORMAL
[2020-06-30 08:42] LABS: HYPOCHROMASIA SLIGHT
== END | disposition home or self-care (01) ==
LOC: LAB 13:45
PROVIDERS: ATTEND Internal Medicine Cardiovascular Disease
DX: R07.2 Precordial pain (principal); R06.02 Shortness of breath; E78.00 Pure hypercholesterolemia, unspecified
CPT/HCPCS: 36415; 71046; 80053; 80061; 83036; 84443; 85025

== ENCOUNTER → 2020-12-19 | Outpatient (CLI) | payer OTHER ==
[~2020-12-19] MED LIST changes: +COVID-19 VACC, MRNA(MODERNA)/PF 100 MCG/0.5 ML VIAL IM ONE
== END ==
LOC: VACCPMC 09:00
DX: Z23 Encounter for immunization (principal); Z20.822 Contact with and (suspected) exposure to COVID-19

== ENCOUNTER 2021-02-08 07:35 | Emergency (ER) | payer OTHER ==
[~2021-02-08] VITALS: Ht 162.6 cm; Wt 159.7 kg
[~2021-02-08 07:35] MED LIST changes: -COVID-19 VACC, MRNA(MODERNA)/PF 100 MCG/0.5 ML VIAL IM ONE
[2021-02-08] MEDS ORDERED: SODIUM CHLORIDE 0.9% 1000ML 1,000 ML IV STA (07:40)
[2021-02-08] MEDS ORDERED: MECLIZINE HCL 12.5 MG TAB PO ONE (07:45)
[2021-02-08] MEDS ORDERED: ONDANSETRON ODT4 MG PO (08:23)
[2021-02-08] MEDS ORDERED: MECLIZINE HCL12.5 MG PO (08:23)
[2021-02-08 08:43] LABS: BASOPHILS % 0.6 % (0.0-1.0); EOSINOPHILS # (AUTO) 0.2 (0.0-0.4); EOSINOPHILS % 3.5 % (0.0-6.0); HEMATOCRIT 37.6 % (34.2-44.1); HEMOGLOBIN 11.2 g/dL (12.0-16.0); LYMPHOCYTES # (AUTO) 2.7 (1.0-3.2); MEAN CORPUSCULAR HEMOGLOBIN 23.9 pg (28-32); MEAN CORPUSCULAR HGB CONC 29.8 g/dL (31-35); MEAN CORPUSCULAR VOLUME 80.2 fL (81-99); MONOCYTES # (AUTO) 0.7 (0.2-0.8); NEUTROPHILS % 44.6 % (38.7-80.0); PLATELET COUNT 385 x10e3/uL (140-360); RED BLOOD COUNT 4.69 x10e6/uL (3.6-5.1); RED CELL DISTRIBUTION WIDTH 16.7 % (11.7-14.4)
[2021-02-08 09:13] LABS: ALBUMIN 3.5 g/dL (3.5-5.0); ANION GAP 14.9 mmol/L (8-16); CALCIUM 8.6 mg/dL (8.4-10.2); CREATININE, SERUM 0.77 mg/dL (0.57-1.11); POTASSIUM 3.9 mmol/L (3.5-5.1)
[2021-02-08] MEDS ORDERED: DIAZEPAM 5 MG TAB PO PRN (10:00)
== END 2021-02-08 11:25 | disposition home or self-care (01) ==
LOC: ER 07:42
DX: R42 Dizziness and giddiness (principal); R00.0 Tachycardia, unspecified
CPT/HCPCS: 36415; 70450; 80053; 84484; 85025; 93005; 99284; J7030; J8597

== ENCOUNTER → 2024-05-20 | Day surgery (SDC) | payer OTHER ==
[~2024-05-20] MED LIST changes: +DIPHENHYDRAMINE HCL INJ 50 MG/ML VIAL ONE; +FENTANYL CITRATE/PF 100MCG/2 ML INJ ONE; +MECLIZINE HCL12.5 MG PO; +MIDAZOLAM HCL 2 MG/2 ML VIAL ONE; +MOUNJARO15 MG/0.5; +ONDANSETRON ODT4 MG PO; +PROPOFOL IV EMULSION 10 MG/ML 20 ML VIAL ONE; +VENTOLIN HFA18 GM INH
[2024-05-20] MEDS: LACTATED RINGER'S 1,000 ML ONE (10:33)
[2024-05-20 13:40] VITALS: TEMP 97.8
[2024-05-20] MEDS: DIPHENHYDRAMINE HCL INJ 50 MG/ML VIAL IV ONE (13:52)
[2024-05-20 14:00] VITALS: BP 126/86; PULSE 86; RESP 18; O2SAT 95
== END | disposition home or self-care (01) ==
LOC: OR 10:15
PROVIDERS: ATTEND Internal Medicine Gastroenterology
DX: D64.89 Other specified anemias (principal); K64.8 Other hemorrhoids; E66.01 Morbid (severe) obesity due to excess calories; J45.909 Unspecified asthma, uncomplicated; F41.9 Anxiety disorder, unspecified; M06.9 Rheumatoid arthritis, unspecified; Z88.1 Allergy status to other antibiotic agents; Z88.8 Allergy status to other drugs, medicaments and biological substances; Z01.810 Encounter for preprocedural cardiovascular examination; Z79.85 Long-term (current) use of injectable non-insulin antidiabetic drugs; Z79.899 Other long term (current) drug therapy; Z68.43 Body mass index [BMI] 50.0-59.9, adult; Z71.3 Dietary counseling and surveillance
CPT/HCPCS: 45378; 93005; J1200; J2250; J2704; J3010; J7121